=== PATIENT | male | born 1955 | race Caucasian/White ===

== ENCOUNTER 2017-03-20 09:44 | Inpatient (IN) | payer OTHER ==
[~2017-03-20] VITALS: Ht 167.6 cm; Wt 79.4 kg
[2017-03-20] MEDS ORDERED: ATOR40TA28 PO (10:10)
[2017-03-20] MEDS ORDERED: CLOP75 PO (10:10)
[2017-03-20] MEDS ORDERED: CARV3 PO (10:10)
[2017-03-20] MEDS ORDERED: ENAL5 PO (10:10)
[2017-03-20] MEDS ORDERED: ASPI-556 PO (10:10)
[2017-03-20] MEDS ORDERED: NITROGLYCERIN 0.4 MG SUBLINGUAL TABLET #25 SL ONE (10:30)
[2017-03-20] MEDS ORDERED: NITROGLYCERIN 2% (1 GM=INCH) PACKET TP ONE (10:30)
[2017-03-20 10:47] LABS: BASOPHILS % (AUTO) 0.4 % (0.0-2.0); EOSINOPHILS % (AUTO) 2.5 % (1.0-6.0); HEMATOCRIT 42.3 % (41-53); HEMOGLOBIN 14.2 g/dL (13.5-17.5); LYMPHOCYTES # (AUTO) 1.7 K/uL (1.0-4.8); LYMPHOCYTES % (AUTO) 31.4 % (22.0-44.0); MEAN CORPUSCULAR HEMOGLOBIN 30.6 pg (26.0-34.0); MEAN CORPUSCULAR HGB CONC 33.6 G/dL (31.0-37.0); MEAN CORPUSCULAR VOLUME 91 fL (80-100); MONOCYTES # (AUTO) 0.5 K/uL (0.1-1.0); MONOCYTES % (AUTO) 8.3 % (2.0-9.0); NEUTROPHILS # (AUTO) 3.1 K/uL (1.8-7.7); NEUTROPHILS % (AUTO) 57.4 % (40.0-70.0); PLATELET COUNT (AUTO) 275 K/uL (150-450); RED BLOOD CELL COUNT(AUTO) 4.64 MIL/uL (4.50-5.90); RED CELL DISTRIBUTION WIDTH 14.3 % (11.5-14.5)
[2017-03-20 10:57] LABS: ANION GAP 7 mmol/L (8-16); CALCIUM, TOTAL 8.5 mg/dL (8.8-10.5); CARBON DIOXIDE 26 mmol/L (22-29); CHLORIDE 102 mmol/L (98-107); CREATININE 0.98 mg/dL (0.60-1.30); GLOMERULAR FILTR. RATE CALC > 60 mL/min (>60); GLUCOSE,RANDOM 105 mg/dL (70-110); POTASSIUM 4.3 mmol/L (3.5-5.1); SODIUM SERUM 135 mmol/L (136-145); UREA NITROGEN, BLOOD 26 mg/dL (7-18)
[2017-03-20 10:59] LABS: INR 0.9 (0.9-1.1)
[2017-03-20 11:03] LABS: ALANINE AMINOTRANSFERASE 34 U/L (12-78); ALBUMIN 3.6 g/dL (3.4-5.0); ALKALINE PHOSPHATASE 90 U/L (46-116); ASPARTATE AMINOTRANSFERASE 19 U/L (15-37); BILIRUBIN,TOTAL 0.6 mg/dL (0.1-1.0); TOTAL PROTEIN, SERUM 7.4 g/dL (6.4-8.2)
[2017-03-20 11:14] LABS: B-TYPE NATRIURETIC PEPTIDE 57 pg/mL (0-100)
[2017-03-20] MEDS ORDERED: MORPHINE SULFATE 2 MG/ML SYRINGE IVP PRN (11:30)
[2017-03-20] MEDS ORDERED: MAGNESIUM HYDROXIDE SUSPENSION 30 ML UDCUP PO PRN (11:30)
[2017-03-20] MEDS: PANTOPRAZOLE SODIUM 40 MG DR TABLET PO SCH (11:44)
[2017-03-20 14:12] LABS: APPEARANCE,URINE CLOUDY (CLEAR); BILIRUBIN,URINE NEGATIVE (NEGATIVE); GLUCOSE, URINE (UA) NEGATIVE (NEGATIVE); KETONES,URINE NEGATIVE (NEGATIVE); LEUKOCYTE ESTERASE ,URINE NEGATIVE (NEGATIVE); NITRATE,URINE NEGATIVE (NEGATIVE); OCCULT BLOOD,URINE NEGATIVE (NEGATIVE); PH,URINE 5.5 (5.0-8.0); PROTEIN,URINE NEGATIVE (NEGATIVE); UROBILINOGEN,URINE 0.2 mg/dL (<=1.0)
[2017-03-20 17:51] VITALS: BP 147/72
[2017-03-20] MEDS ORDERED: PNEUMOCOCCAL VACCINE POLYVALENT 0.5 ML VIAL [PPSV23] IM ONE (19:00)
[2017-03-20 19:20] VITALS: BP 143/78
[2017-03-20] MEDS: DOCUSATE SODIUM 100 MG CAPSULE PO SCH (20:21)
[2017-03-20 23:25] VITALS: BP 133/79
[2017-03-21] VITALS (15 sets, daily range): BP systolic 120–184; BP diastolic 74–94
[2017-03-21] MEDS ORDERED: SODIUM BICARBONATE 50 MEQ/50 ML VIAL ONE (09:13)
[2017-03-21] MEDS ORDERED: IOHEXOL 300 MG/ML 150 ML VIAL ONE (09:13)
[2017-03-21] MEDS ORDERED: LIDOCAINE HCL/PF 1% 30 ML VIAL ONE (09:13)
[2017-03-21] MEDS ORDERED: HEPARIN SODIUM 1000 UNITS/NS 1,000 ML ONE (09:13)
[2017-03-21] MEDS ORDERED: SODIUM CHLORIDE 0.9% 500 ML IV ONE (10:05)
[2017-03-21] MEDS ORDERED: HEPARIN SODIUM 1000 UNITS/NS 1,000 ML IARTER ONE (10:05)
[2017-03-21] MEDS ORDERED: LIDOCAINE 1% 30 ML/SOD BICARB 8.4% 4 ML SQ ONE (10:15)
[2017-03-21] MEDS ORDERED: IOHEXOL 300 MG/ML 150 ML VIAL IARTER ONE (10:15)
[2017-03-21] MEDS: DOCUSATE SODIUM 100 MG CAPSULE PO SCH ×2 (11:00→19:58)
[2017-03-21] MEDS: NITROGLYCERIN 2% (1 GM=INCH) PACKET TP SCH ×2 (11:00→16:19)
[2017-03-21] MEDS: PANTOPRAZOLE SODIUM 40 MG DR TABLET PO SCH (11:00)
[2017-03-21] MEDS: ASPIRIN 81 MG EC TABLET PO SCH (11:00)
[2017-03-21] MEDS: ATORVASTATIN CALCIUM 40 MG TABLET PO SCH (11:00)
[2017-03-21] MEDS: LOSARTAN POTASSIUM 25 MG TABLET PO SCH (11:00)
[2017-03-21] MEDS: CARVEDILOL 6.25 MG TABLET PO SCH ×2 (11:00→19:58)
[2017-03-22] VITALS (7 sets, daily range): BP systolic 117–136; BP diastolic 66–79
[2017-03-22] MEDS: NITROGLYCERIN 2% (1 GM=INCH) PACKET TP SCH ×3 (01:17→17:38)
[2017-03-22] MEDS: ACETAMINOPHEN 325 MG TABLET PO PRN ×2 (05:03→20:29)
[2017-03-22 05:18] LABS: BASOPHILS % (AUTO) 0.2 % (0.0-2.0); EOSINOPHILS % (AUTO) 0.9 % (1.0-6.0); HEMOGLOBIN 13.6 g/dL (13.5-17.5); LYMPHOCYTES # (AUTO) 1.7 K/uL (1.0-4.8); LYMPHOCYTES % (AUTO) 19.3 % (22.0-44.0); MEAN CORPUSCULAR HEMOGLOBIN 30.9 pg (26.0-34.0); MEAN CORPUSCULAR HGB CONC 33.9 G/dL (31.0-37.0); MEAN CORPUSCULAR VOLUME 91 fL (80-100); MONOCYTES # (AUTO) 0.8 K/uL (0.1-1.0); MONOCYTES % (AUTO) 8.7 % (2.0-9.0); NEUTROPHILS # (AUTO) 6.4 K/uL (1.8-7.7); NEUTROPHILS % (AUTO) 70.9 % (40.0-70.0); PLATELET COUNT (AUTO) 262 K/uL (150-450); RED BLOOD CELL COUNT(AUTO) 4.39 MIL/uL (4.50-5.90); RED CELL DISTRIBUTION WIDTH 14.2 % (11.5-14.5)
[2017-03-22 05:47] LABS: ALANINE AMINOTRANSFERASE 28 U/L (12-78); ALBUMIN 3.3 g/dL (3.4-5.0); ALKALINE PHOSPHATASE 88 U/L (46-116); ANION GAP 5 mmol/L (8-16); ASPARTATE AMINOTRANSFERASE 6 U/L (15-37); BILIRUBIN,TOTAL 1.4 mg/dL (0.1-1.0); CALCIUM, TOTAL 8.5 mg/dL (8.8-10.5); CARBON DIOXIDE 28 mmol/L (22-29); CHLORIDE 102 mmol/L (98-107); CREATININE 1.01 mg/dL (0.60-1.30); GLOMERULAR FILTR. RATE CALC > 60 mL/min (>60); GLUCOSE,RANDOM 119 mg/dL (70-110); POTASSIUM 3.9 mmol/L (3.5-5.1); SODIUM SERUM 135 mmol/L (136-145); TOTAL PROTEIN, SERUM 7.1 g/dL (6.4-8.2); UREA NITROGEN, BLOOD 16 mg/dL (7-18)
[2017-03-22] MEDS: ATORVASTATIN CALCIUM 40 MG TABLET PO SCH (09:45)
[2017-03-22] MEDS: DOCUSATE SODIUM 100 MG CAPSULE PO SCH ×2 (09:45→20:29)
[2017-03-22] MEDS: LOSARTAN POTASSIUM 25 MG TABLET PO SCH (09:45)
[2017-03-22] MEDS: PANTOPRAZOLE SODIUM 40 MG DR TABLET PO SCH (09:46)
[2017-03-22] MEDS: CARVEDILOL 6.25 MG TABLET PO SCH ×2 (09:46→20:29)
[2017-03-22] MEDS: ASPIRIN 81 MG EC TABLET PO SCH (09:46)
[2017-03-23] VITALS (7 sets, daily range): BP systolic 110–144; BP diastolic 67–83
[2017-03-23] MEDS: NITROGLYCERIN 2% (1 GM=INCH) PACKET TP SCH ×3 (00:36→17:50)
[2017-03-23] MEDS: PANTOPRAZOLE SODIUM 40 MG DR TABLET PO SCH (09:41)
[2017-03-23] MEDS: ASPIRIN 81 MG EC TABLET PO SCH (09:41)
[2017-03-23] MEDS: LOSARTAN POTASSIUM 25 MG TABLET PO SCH (09:41)
[2017-03-23] MEDS: ATORVASTATIN CALCIUM 40 MG TABLET PO SCH (09:41)
[2017-03-23] MEDS: DOCUSATE SODIUM 100 MG CAPSULE PO SCH ×2 (09:42→21:00)
[2017-03-23] MEDS: CARVEDILOL 6.25 MG TABLET PO SCH ×2 (09:42→21:00)
[2017-03-24 04:00] VITALS: BP 123/73
[2017-03-24 07:00] VITALS: BP 146/80
[2017-03-24] MEDS: CARVEDILOL 6.25 MG TABLET PO SCH (08:28)
[2017-03-24] MEDS: ASPIRIN 81 MG EC TABLET PO SCH (08:28)
[2017-03-24] MEDS: ATORVASTATIN CALCIUM 40 MG TABLET PO SCH (08:28)
[2017-03-24] MEDS: NITROGLYCERIN 2% (1 GM=INCH) PACKET TP SCH ×2 (08:28)
[2017-03-24] MEDS: LOSARTAN POTASSIUM 25 MG TABLET PO SCH (08:28)
[2017-03-24] MEDS: PANTOPRAZOLE SODIUM 40 MG DR TABLET PO SCH (08:28)
[2017-03-24] MEDS: DOCUSATE SODIUM 100 MG CAPSULE PO SCH (08:28)
== END 2017-03-24 10:40 | disposition short-term general hospital (02) | DRG 191 ==
LOC: EMS 09:46 → 5N 16:45
PROVIDERS: ADMIT Internal Medicine; ATTEND Internal Medicine
PROC: 4A023N7 Measurement of Cardiac Sampling and Pressure, Left Heart, Percutaneous Approach (ICD-10-PCS; principal; 2017-03-21)
PROC: B2111ZZ Fluoroscopy of Multiple Coronary Arteries using Low Osmolar Contrast (ICD-10-PCS; 2017-03-21)
PROC: B2151ZZ Fluoroscopy of Left Heart using Low Osmolar Contrast (ICD-10-PCS; 2017-03-21)
DX: I25.110 Atherosclerotic heart disease of native coronary artery with unstable angina pectoris (principal); I11.0 Hypertensive heart disease with heart failure; I50.9 Heart failure, unspecified; E78.5 Hyperlipidemia, unspecified; I25.2 Old myocardial infarction; Z79.02 Long term (current) use of antithrombotics/antiplatelets; Z79.82 Long term (current) use of aspirin; Z79.899 Other long term (current) drug therapy
CPT/HCPCS: 83735; 85576; 90471; 93005; 99285; J1644; J3490; Q9967

== ENCOUNTER 2021-07-13 13:13 | Emergency (ER) | payer OTHER ==
[~2021-07-13] VITALS: Ht 165.1 cm; Wt 82.7 kg
[~2021-07-13 13:13] MED LIST: ASPI-556 PO; ATOR40TA28 PO; CARV3 PO; CLOP75TA60 PO; ENAL5TAB17 PO
[2021-07-13 13:22] VITALS: BP 134/74
[2021-07-13] MEDS ORDERED: LIDOCAINE 1% 10 ML VIAL ID ONE (14:30)
== END 2021-07-13 15:27 | disposition home or self-care (01) ==
LOC: EMS 13:13
DX: S51.812A Laceration without foreign body of left forearm, initial encounter (principal); E78.00 Pure hypercholesterolemia, unspecified; I10 Essential (primary) hypertension; Z95.1 Presence of aortocoronary bypass graft; W27.8XXA Contact with other nonpowered hand tool, initial encounter; Y93.89 Activity, other specified; Y92.89 Other specified places as the place of occurrence of the external cause; Y99.8 Other external cause status
CPT/HCPCS: 12002; 99282; J3490